=== PATIENT | female | born 1980 | race Caucasian/White ===

== ENCOUNTER → 2018-11-04 | Day surgery (SDC) | payer BC ==
[~2018-11-04] MED LIST: Bupivacaine 0.25% 10 ML SDV ONE; Dexamethasone 4 MG/ML 5 ML MDV ONE; Glycopyrrolate 0.2 MG/ML SDV ONE; Lactated Ringers 1,000 ML IV SCH; Lidocaine 2% 5 ML SDV ONE; Midazolam 1 MG/ML 2 ML SDV ONE; Neomycin/Polymyxin B Bladder Irrigation 1 ML Amp ONE; Neostigmine Methylsulfate 1 MG/ML 5 ML Syringe ONE; Ondansetron 4 MG/2 ML SDV ONE; Propofol 200 MG/20 ML SDV ONE; Scopolamine 1.5 MG Transdermal Patch TRDERM PRN; Sugammadex Sodium 200 MG/2 ML VIAL ONE; ceFAZolin 1 GM Vial ONE; fentaNYL 100 MCG/2 ML SDV ONE
--- NOTE | 2018-11-04 10:31 | PCM.PREANE ---
Preanesthetic Assessment - Anesthesia/Transfusion/Family Hx Anesthesia History: Prior Anesthesia Without Reaction Type of Anesthesia Reaction: Excessive Nausea/Vomiting Family History of Anesthesia Reaction: No Transfusion History: No Prior Transfusion(s) Intubation History: Unknown - Review of Systems General: No Symptoms Pulmonary: No Symptoms Cardiovascular: No Symptoms Gastrointestinal: No Symptoms Neurological: No Symptoms Other: Reports: None - Physical Assessment O2 Sat by Pulse Oximetry: 98 Respiratory Rate: 16 Vital Signs: Last Vital Signs Temp 36.7 C 11/04/18 09:59 Pulse 79 11/04/18 09:59 Resp 16 11/04/18 09:59 BP 124/69 11/04/18 09:59 Pulse Ox 98 11/04/18 09:59 Height: 1.55 m Weight: 62.596 kg ASA Class: 2 Mental Status: Alert & Oriented x3 Airway Class: Mallampati = 1 Dentition: Reports: Normal Dentition Thyro-Mental Finger Breadths: 3 Mouth Opening Finger Breadths: 3 ROM/Head Extension: Full Lungs: Clear to Auscultation, Normal Respiratory Effort Cardiovascular: Regular Rate, Regular Rhythm - Lab Values: Laboratory Last Values WBC 10.35 K/uL (4.0-11.0) 11/03/18 10:31 RBC 4.82 M/uL (4.30-5.90) 11/03/18 10:31 Hgb 15.2 g/dL (12.0-16.0) 11/03/18 10:31 Hct 44.0 % (36.0-46.0) 11/03/18 10:31 MCV 91.3 fL (80.0-98.0) 11/03/18 10:31 MCH 31.5 pg (27.0-32.0) 11/03/18 10:31 MCHC 34.5 g/dL (31.0-37.0) 11/03/18 10:31 RDW Std Deviation 44.4 fl (28.0-62.0) 11/03/18 10:31 RDW Coeff of Clarence 13 % (11.0-15.0) 11/03/18 10:31 Plt Count 190 K/uL (150-400) 11/03/18 10:31 MPV 12.50 fL (7.40-12.00) H 11/03/18 10:31 Nucleated RBC % 0.0 /100WBC 11/03/18 10:31 Nucleated RBCs # 0 K/uL 11/03/18 10:31 HCG, Qual NEGATIVE (NEG) 11/03/18 10:31 - Allergies Allergies/Adverse Reactions: Allergies Allergy/AdvReac Type Severity Reaction Status Date / Time aspirin Allergy Anaphylactic Verified 10/30/18 13:33 Shock egg Allergy Abdominal Verified 10/30/18 13:33 Pain Sulfa (Sulfonamide Allergy Hives Verified 10/30/18 13:33 Antibiotics) "Myacin" meds Allergy Hives Uncoded 10/22/16 11:38 All Narcotics except T3 Allergy Vomiting Uncoded 10/22/16 11:38 - Blood Blood Available: No - Anesthesia Plan Pre-Op Medication Ordered: None - Acknowledgements Anesthesia Type Planned: General Anesthesia Pt an Appropriate Candidate for the Planned Anesthesia: Yes Alternatives and Risks of Anesthesia Discussed w Pt/Guardian: Yes Pt/Guardian Understands and Agrees with Anesthesia Plan: Yes PreAnesthesia Questionnaire HEENT History: Reports: Other (See Below) Other HEENT History: Multiple jaw dislocations, wears glasses Cardiovascular History: Reports: None 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) Gastrointestinal History: Reports: PUD Genitourinary History: Reports: None 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: , Other (See Below) Other OB/BYN History: Cervical Cancer Musculoskeletal History: Reports: None Neurological History: Reports: Migraines Psychiatric History: Reports: Anxiety, Depression Endocrine/Metabolic History: Reports: None Hematologic History: Reports: None Immunologic History: Reports: None Oncologic (Cancer) History: Reports: Cervix Dermatologic History: Reports: None - Infectious Disease History Infectious Disease History: Reports: Chicken Pox - Past Surgical History Head Surgeries/Procedures: Reports: None HEENT Surgical History: Reports: Oral Surgery Other HEENT Surgeries/Procedures: wisdom teeth extractions Cardiovascular Surgical History: Reports: None Respiratory Surgical History: Reports: None GI Surgical History: Reports: Cholecystectomy Female Surgical History: Reports: Hysterectomy (vaginal) Endocrine Surgical History: Reports: None Neurological Surgical History: Reports: None Musculoskeletal Surgical History: Reports: None Oncologic Surgical History: Reports: None Dermatological Surgical History: Reports: None - SUBSTANCE USE Smoking Status *Q: Never Smoker Recreational Drug Use History: No - HOME MEDS Home Medications: Home Meds diphenhydrAMINE HCl [Benadryl Allergy] 25 mg PO BEDTIME 10/22/16 [History] Albuterol Sulfate [Albuterol Sulfate Hfa] 1 - 2 puff INH ASDIRECTED PRN [History] - CURRENT (IN HOUSE) MEDS Current Meds: Current Medications Lactated Ringer's (Ringers, Lactated) 1,000 mls @ 125 mls/hr IV ASDIRECTED NADJA Last Admin: 11/04/18 10:04 Dose: 125 mls/hr
--- NOTE | 2018-11-04 12:03 | PCM.OPNOTE ---
- General Post-Op/Procedure Note Date of Surgery/Procedure: 11/04/18 Operative Procedure(s): single incision midurethral sling placement Findings: urethral hypermobility Pre Op Diagnosis: stress incontinence with urethral hypermobility Post-Op Diagnosis: Same Anesthesia Technique: General ET Tube Primary Surgeon: Patricia Mario Anesthesia Provider: Mari Ambrose Radic Pathology: none Fluid Replacement, Intraop: 1,000 EBL in mLs: 10 Drain/Tube Comments:: Shah left for post-void residual Complications: None Known Condition: Good
--- NOTE | 2018-11-04 13:26 | PCM48HPAN ---
Post Anesthesia Note - EVALUATION WITHIN 48HRS OF ANESTHETIC Vital Signs in Normal Range: Yes Patient Participated in Evaluation: Yes Respiratory Function Stable: Yes Airway Patent: Yes Cardiovascular Function Stable: Yes Hydration Status Stable: Yes Pain Control Satisfactory: Yes Nausea and Vomiting Control Satisfactory: Yes Mental Status Recovered: Yes Resp Rate: 12 - COMMENTS/OBSERVATIONS Free Text/Narrative:: no anesthesia problems
--- NOTE | 2018-11-04 14:07 | OR ---
SURGEON: Patricia Mario M.D. DATE OF PROCEDURE: 11/04/2018 PREOPERATIVE DIAGNOSIS: Stress urinary incontinence with urethral hypermobility. POSTOPERATIVE DIAGNOSIS: Stress urinary incontinence with urethral hypermobility. PROCEDURE: Single incision mid urethral sling placement. ANESTHESIA: Local and general. ESTIMATED BLOOD LOSS: 10 mL. FINDINGS: Urethral hypermobility, good vaginal support. COMPLICATIONS: None known. DISPOSITION: Stable to recovery. FLUIDS: 1000 mL crystalloid. BRIEF HISTORY: This is a 38-year-old female. She has had a prior hysterectomy. She complains of stress incontinence. Cystometry confirmed urethral hypermobility with stress incontinence without any other significant findings and therefore she was offered a mid urethral sling. I did offer her referral to urogynecologist as well as expectant management. She has already been doing Kegel exercises and has maximally utilized her pelvic floor training and desires to proceed with the mid urethral sling. She was extensively counseled on 2 occasions prior to the surgery and given written information. The specific risks were discussed including bleeding; infection; injury to urethra, bladder, and ureters; risk of pain; risk of pain with intercourse; risk of erosion into the vagina or urethra; risk of failure. Understanding all these risks, she does desire to proceed. DESCRIPTION OF PROCEDURE: With the patient in dorsal lithotomy position under adequate general anesthesia, the perineum and vagina were prepped with Betadine, draped in the usual fashion for vaginal surgery. Shah catheter was placed. SCDs were in place and appropriate time-out was held. She received a gram of Ancef IV. A weighted speculum was placed posteriorly and the Shah bulb was palpated. The vaginal mucosa was grasped approximately 1 cm cephalad from the urethral meatus and a 1.5 cm incision was made after hydrodissection was performed using 1:1 to 2 solution of 1% lidocaine, 0.25% Marcaine, and saline. Metzenbaum scissors were used to undermine the vaginal mucosa toward the pubic ramus on the right and left and the obturator foramen was palpated. The Solyx sling was loaded and with the tip at a 45-degree angle, pointing just beneath the pubic ramus and the handle at a slight 30 degrees angle, directed from the midline towards the ipsilateral side, the tip was passed beneath the pubic ramus. The handle was then dropped and rotated approximately 45 degrees once it passed through the obturator foramen. As the tip was passed through the obturator foramen, I confirmed that it was placed securely and the tip was then released. The process was repeated on the opposite side. However, before releasing the handle, curved Lyles scissors were placed between the urethra and the sling to ensure that the sling was appropriately tensioned and located. Therefore, the tip was released and Neosporin solution was used to irrigate the incision and the skin was closed a running lock suture of 3-0 Polysorb. The Shah catheter was left in place for a voiding trial following the surgery. Final sponge, needle, and instrument counts were reported as correct. All the instruments had been removed from the vagina. The patient was transferred into recovery in good condition. MIKE JIM /[id number]
[2018-11-04 16:52] VITALS: BP 128/76
== END | disposition home or self-care (01) ==
LOC: MW.SDS 08:34
PROVIDERS: ATTEND Obstetrics & Gynecology
DX: N36.41 Hypermobility of urethra (principal); N39.3 Stress incontinence (female) (male); J45.990 Exercise induced bronchospasm; G43.909 Migraine, unspecified, not intractable, without status migrainosus; F32.9 Major depressive disorder, single episode, unspecified; F41.9 Anxiety disorder, unspecified; Z88.6 Allergy status to analgesic agent; Z91.012 Allergy to eggs; Z88.2 Allergy status to sulfonamides; Z88.5 Allergy status to narcotic agent; Z90.710 Acquired absence of both cervix and uterus
CPT/HCPCS: 36415; 57288; 84703; 85027; A9270; C1771; J0690; J1100; J2001; J2250; J2405; J2704; J3010; J3490; J7120

== ENCOUNTER 2020-06-20 11:52 | Emergency (ER) | payer BC ==
--- NOTE | 2020-06-20 12:26 | EDM.PDOC ---
ED HPI GENERAL MEDICAL PROBLEM - General Chief Complaint: Eye Problems Stated Complaint: EYES SWOLLEN Time Seen by Provider: 06/20/20 11:57 Source of Information: Reports: Patient History Limitations: Reports: No Limitations - History of Present Illness INITIAL COMMENTS - FREE TEXT/NARRATIVE: 39-year-old female w/PMH asthma, seasonal allergies, migraines presenting with bilateral eye swelling and headache. She was seen by her nurse practitioner on 06/17. Patient was diagnosed with intractable migraine and maxillary sinusitis. Had a head CT performed on 06/17/2020 which showed no acute intracranial findings but was concerning for bilateral ethmoid and maxillary sinusitis. She was started on Augmentin twice daily for 14 days and also given fluticasone spray. She received intramuscular ketorolac and methylprednisolone. Today she presents complaining of bilateral eyelid swelling, headache, sinus pressure. Posterior headache on the left side present for at least 9 days. States this is typical for her compared to her prior migraines. Denies any history of head trauma, anticoagulant use, history of intracranial aneurysm, fever, neck stiffness, facial droop, facial or extremity numbness or weakness, gait changes. Bilateral maxillary sinus pressure for at least 12 days. Bilateral eyelids have been swollen for close to a week. Denies any eye pain, visual disturbance, pain with eye movement, does not wear contacts, no prior ophthalmologic surgeries. Denies fever, chills, neck stiffness, chest pain, shortness of breath, rhinorrhea, hives, rash, recent injuries to the eye. No drainage from the eyes. No sore throat or difficulty swallowing, handling secretions well without issue. Past medical history: Reviewed, no additional pertinent history. Surgical history: Reviewed in system, no additional pertinent history. Social history: Reviewed in system, no additional pertinent history. Family history: Reviewed in system, no additional pertinent history. PHYSICAL EXAM Vital signs reviewed. Nursing notes reviewed. Constitutional: Awake, alert, non-distressed. Head: Normocephalic, atraumatic. Eyes: EOMI, conjunctiva normal, no discharge, no scleral icterus. No scleral injection or drainage from the eyes. Pupils 3 mm bilaterally. Mild bilateral eyelid edema. Visual acuity 20/20 OD, 20/30 OS, 20/20 OU. Ears, Nose, Throat: External ears and nose normal, moist oral mucosa. Normal voice. TMs clear bilaterally, bilateral nares clear. Mild bilateral maxillary sinus tenderness. Neck: Supple, full range of motion. No cervical lymphadenopathy. Cardiovascular: 2+ radial pulse, capillary refill less than 2 seconds. Pulmonary: normal work of breathing, no accessory muscle use. Abdomen/GI: Soft, nontender, nondistended, no guarding or rigidity, no masses. Musculoskeletal: No deformities. Integumentary: Appropriate color for ethnicity, warm, dry, no pallor or jaund ice, no rash. Neurologic: Alert, answering questions appropriately, normal speech, no facial droop, moving all extremities well. Psychiatric: Appropriate mood and affect, normal thought process. head Pain Score (Numeric/FACES): 8 - Related Data Allergies Allergy/AdvReac Type Severity Reaction Status Date / Time aspirin Allergy Anaphylactic Verified 06/20/20 12:20 Shock egg Allergy Abdominal Verified 06/20/20 12:20 Pain Sulfa (Sulfonamide Allergy Hives Verified 06/20/20 12:20 Antibiotics) "Myacin" meds Allergy Hives Uncoded 06/20/20 12:20 All Narcotics except T3 Allergy Vomiting Uncoded 06/20/20 12:20 Home Meds: Home Meds diphenhydrAMINE HCL [Benadryl Allergy] 25 mg PO BEDTIME 10/22/16 [History] Albuterol Sulfate [Albuterol Sulfate Hfa] 1 - 2 puff INH ASDIRECTED PRN 10/30/18 [History] Amoxicillin/Potassium Clav [Augmentin 875-125 Tablet] 1 tab PO BID 06/20/20 [History] Azelastine [Astelin Nasal Soln] 2 spray JOB BID 06/20/20 [History] Past Medical History HEENT History: Reports: Other (See Below) Other HEENT History: Multiple jaw dislocations, wears glasses Cardiovascular History: Reports: None Respiratory History: Reports: Asthma Gastrointestinal History: Reports: PUD Genitourinary History: Reports: None 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: , Other (See Below) 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 MACHINE 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 History: Cervical Cancer Musculoskeletal History: Reports: None Neurological History: Reports: Migraines Psychiatric History: Reports: Anxiety, Depression Endocrine/Metabolic History: Reports: None Hematologic History: Reports: None Immunologic History: Reports: None Oncologic (Cancer) History: Reports: Cervix Dermatologic History: Reports: None - Infectious Disease History Infectious Disease History: Reports: Chicken Pox - Past Surgical History Head Surgeries/Procedures: Reports: None HEENT Surgical History: Reports: Oral Surgery Other HEENT Surgeries/Procedures: wisdom teeth extractions Cardiovascular Surgical History: Reports: None Respiratory Surgical History: Reports: None GI Surgical History: Reports: Cholecystectomy Female Surgical History: Reports: Hysterectomy, Other (See Below) Other Female Surgeries/Procedures: Bladder Sling Endocrine Surgical History: Reports: None Neurological Surgical History: Reports: None Musculoskeletal Surgical History: Reports: None Oncologic Surgical History: Reports: None Dermatological Surgical History: Reports: None Social & Family History - Family History Family Medical History: Noncontributory Cardiac: Reports: CAD - Tobacco Use Smoking Status *Q: Never Smoker - Caffeine Use Caffeine Use: Reports: None - Recreational Drug Use Recreational Drug Use: Yes Drug Use in Last 12 Months: Yes Recreational Drug Type: Reports: Marijuana/Hashish Recreational Drug Use Frequency: Daily ED ROS GENERAL - Review of Systems Review Of Systems: See Below ED EXAM GENERAL W FULL EYE - Physical Exam Exam: See Below Course - Vital Signs Text/Narrative:: Patient [hemodynamically stable, afebrile], well-appearing, looks nontoxic. Differential diagnosis includes but is not limited to: Migraine, ORACLE DATABASE ANALYST tumor, SAH, SDH, EDH, intraparenchymal hemorrhage, bacterial conjunctivitis versus viral versus allergic, allergic reaction, acute sinusitis, seasonal allergies, etc. neurologically intact. Presentation of headache is consistent with known prior migraines. Had a negative head CT on 06/17. Given symptoms are identical and had not changed or worsened with no interval head trauma, do not think we need to repeat this today. I did offer medications to help treat her migraine which she declined. She does not want any ED treatment for her headache. She is neurologically intact and has no focal neurologic deficits. We discussed treatment with imip-ovt-ptoqxev Tylenol and Motrin and following up with her nurse practitioner in primary care clinic. I agree that she likely has acute maxillary sinusitis. She is already on Augmentin and Flonase spray. We discussed further ysyy-gmj-prjzfte treatments including oral Sudafed, nasal saline spray, etc. She is going to see an curing room worker in the next few weeks for further follow-up. Her globes look normal. She does have some mild bilateral eyelid edema. I did recommend huzt-sgg-gljdupa second-generation antihistamine, which she says she has not tolerated well in the past because it triggers her migraines. We did discuss ytgg-zbp-dklfhgd olopatadine for her ocular allergy symptoms. I do not think she has a viral or bacterial conjunctivitis at this point, there is no scleral injection and she is already on oral antibiotics. Her visual acuity is normal. Plan: Patient is stable to discharge home with outpatient primary care clinic follow-up. Strict emergency department return precautions were provided, patient indicated understanding. All questions were answered prior to de parture. Discharged in good condition. Last Recorded V/S: Last Vital Signs Temp 37.1 C 06/20/20 12:17 Pulse 90 06/20/20 12:17 Resp 16 06/20/20 12:17 BP 140/73 06/20/20 12:17 Pulse Ox 99 06/20/20 12:17 - Orders/Labs/Meds Orders: Active Orders 24 hr Category Date Time Status Visual Acuity [Vision Test] [RC] ASDIRECTED Care 06/20/20 12:00 Active Departure - Departure Time of Disposition: 12:57 Disposition: Home, Self-Care 01 Condition: Good Clinical Impression: Edema of eyelid of both eyes Migraine Qualifiers: Migraine type: unspecified Status migrainosus presence: with status migrainosus Intractability: intractable Qualified Code(s): G43.911 - Migraine, unspecified, intractable, with status migrainosus Acute maxillary sinusitis Qualifiers: Recurrence: non-recurrent Qualified Code(s): J01.00 - Acute maxillary sinusitis, unspecified - Discharge Information *PRESCRIPTION DRUG MONITORING PROGRAM REVIEWED*: Not Applicable *COPY OF PRESCRIPTION DRUG MONITORING REPORT IN PATIENT DOYLE: Not Applicable Instructions: Migraine Headache Referrals: Uzma Ambrosio NP [Primary Care Provider] - 1 Week (For reevaluation.) Forms: ED Department Discharge Additional Instructions: You were seen in the emergency department for headache, eyelid swelling, and sinus pressure. I agree that you have sinusitis, continue taking the nasal spray and antibiotics that your nurse practitioner prescribed. Additionally, you can try zdfu-weq-bneplef Sudafed or any mrle-lbm-hirziom sinus medications that contain a decongestant medication such as phenylephrine. He can also try nasal saline rinses such as simply saline. I think that you are likely having a migraine and we did offer some medications, which he did not want to receive. You can take syto-xlf-urqgyrp acetaminophen and ibuprofen as directed on the package. I recommend iuvk-diu-pqhidyx extra strength acetaminophen (1000 mg every 6 hours) and ibuprofen (400 mg every 6 hours) to help treat your pain. Regarding her swollen eyelids, I think this is likely due to your seasonal allergies. I do recommend sbus-vxd-almebvg Claritin or Zyrtec once daily in the morning but I understand that you do not tolerate this very well. You can try an tzzf-dvb-vqzdzid eye medication called olopatadine which is an ocular allergy medication which may help. I would like for you to follow-up with your nurse practitioner in her clinic in the next few days if you are not feeling better, I also agree with seeing an curing room worker as you already plan to do. If your symptoms worsen come back to the ER immediately. Thank you for choosing the [facility] emergency department in [place] for your medical needs today. It was a pleasure caring for you. The following information is given to patients seen in the emergency department who are being discharged. This information is to outline your options for follow-up care. We provide all patients seen in our emergency department with a follow-up referral. The need for follow-up, as well as the timing and circumstances, are variable depending upon the specifics of your emergency department visit. If you don't have a primary care physician on staff, we will provide you with a referral. We always advise you to contact your personal physician following an emergency department visit to inform them of the circumstance of the visit and for follow-up with them and/or the need for any referrals to a consulting specialist. The emergency department will also refer you to a specialist when appropriate. This referral assures that you have the opportunity for follow-up care with a specialist. All of these measure are taken in an effort to provide you with optimal care, which includes your follow-up. Under all circumstances we always encourage you to contact your private physician who remains a resource for coordinating your care. When calling for follow-up care, please make the office aware that this follow-up is from your recent emergency room visit. If for any reason you are refused follow-up, please contact the [facility] Emergency Department at and asked to speak to the emergency department charge nurse. If you do not have a primary care physician that is caring for you, you can contact these clinics below to set up an appointment to establish care: [facility] - Primary Care [address] [place] [id number] [facility] [address] [place] [id number] Sepsis Event Note (ED) - Evaluation Sepsis Screening Result: No Definite Risk - Focused Exam Vital Signs: Vital Signs Temp Pulse Resp BP Pulse Ox 06/20/20 12:17 37.1 C 90 16 140/73 99 - My Orders Last 24 Hours: My Active Orders 06/20/20 12:00 Visual Acuity [Vision Test] [RC] ASDIRECTED - Assessment/Plan Last 24 Hours: My Active Orders 06/20/20 12:00 Visual Acuity [Vision Test] [RC] ASDIRECTED
[2020-06-20 13:10] VITALS: BP 134/64; PULSE 81
== END 2020-06-20 13:10 | disposition home or self-care (01) ==
LOC: MW.ED 11:52
DX: H02.846 Edema of left eye, unspecified eyelid (principal); H02.843 Edema of right eye, unspecified eyelid; G43.911 Migraine, unspecified, intractable, with status migrainosus; J01.00 Acute maxillary sinusitis, unspecified; J45.909 Unspecified asthma, uncomplicated; Z88.6 Allergy status to analgesic agent; Z91.012 Allergy to eggs; Z88.2 Allergy status to sulfonamides; Z79.899 Other long term (current) drug therapy
CPT/HCPCS: 99283

== ENCOUNTER 2020-08-30 03:58 | Emergency (ER) | payer BC ==
--- NOTE | 2020-08-30 04:28 | EDM.PDOC ---
ED HPI GENERAL MEDICAL PROBLEM - General Chief Complaint: General Stated Complaint: PT. IS HAVING COMPLICATION AFTER SURGERY Time Seen by Provider: 08/30/20 03:59 Source of Information: Reports: Patient, Old Records History Limitations: Reports: No Limitations - History of Present Illness INITIAL COMMENTS - FREE TEXT/NARRATIVE: This is a very pleasant 40-year-old female with a past medical history of asthma, sinusitis, and migraines presenting with sore throat and cough. 3-day history of the symptoms. She was concerned that she may have strep throat so she came to the ER. Denies fever, chills, nausea, vomiting, neck stiffness, shortness of breath, chest pain, abdominal pain, rash, dysuria, urinary frequency. Denies rhinorrhea or nasal congestion. Handling food and fluids without any issues. Taking tetracaine lollipops left over from sinus surgery for pain. Past medical history: Reviewed, no additional pertinent history. Surgical history: Reviewed in system, no additional pertinent history. Social history: Reviewed in system, no additional pertinent history. Family history: Reviewed in system, no additional pertinent history. PHYSICAL EXAM Vital signs reviewed. Nursing notes reviewed. Constitutional: Awake, alert, non-distressed. Head: Normocephalic, atraumatic. Eyes: EOMI, conjunctiva normal, no discharge, no scleral icterus. Ears, Nose, Throat: External ears and nose normal, moist oral mucosa. Uvula midline, tonsils appear normal, no exudate or erythema. No palatine erythema or lesions. No cervical lymphadenopathy. Neck: Supple, full range of motion. Cardiovascular: 2+ radial pulse, capillary refill less than 2 seconds. Pulmonary: normal work of breathing, no accessory muscle use. CTA BL. Abdomen/GI: Soft, nontender, nondistended, no guarding or rigidity, no masses. Musculoskeletal: No deformities. Integumentary: Appropriate color for ethnicity, warm, dry, no pallor or jaundice, no rash. Neurologic: Alert, answering questions appropriately, normal speech, no facial droop, moving all extremities well. Psychiatric: Appropriate mood and affect, normal thought process. This patient was seen and evaluated during the 2019 SARS-CoV-2 novel coronavirus pandemic period. Community viral transmission is ongoing at time of this encounter and the emergency department is operating under pandemic response procedures. throat Pain Score (Numeric/FACES): 8 - Related Data Allergies Allergy/AdvReac Type Severity Reaction Status Date / Time aspirin Allergy Anaphylactic Verified 08/30/20 04:08 Shock egg Allergy Abdominal Verified 08/30/20 04:08 Pain Sulfa (Sulfonamide Allergy Hives Verified 08/30/20 04:08 Antibiotics) "Myacin" meds Allergy Hives Uncoded 08/30/20 04:08 All Narcotics except T3 Allergy Vomiting Uncoded 08/30/20 04:08 Home Meds: Home Meds diphenhydrAMINE HCL [Benadryl Allergy] 25 mg PO BEDTIME 10/22/16 [History] Past Medical History HEENT History: Reports: Sinusitis, Other (See Below) Other HEENT History: Multiple jaw dislocations, wears glasses Cardiovascular History: Reports: None Respiratory History: Reports: None, Asthma Gastrointestinal History: Reports: None, PUD Genitourinary History: Reports: None 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 MANAGER History: Reports: None, , Other (See Below) Other GLOBAL 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 MANAGER History: Cervical Cancer Musculoskeletal History: Reports: None Neurological History: Reports: Migraines Psychiatric History: Reports: Anxiety, Depression Endocrine/Metabolic History: Reports: None Hematologic History: Reports: None Immunologic History: Reports: None Oncologic (Cancer) History: Reports: None, Cervix Dermatologic History: Reports: None - Infectious Disease History Infectious Disease History: Reports: Chicken Pox - Past Surgical History Head Surgeries/Procedures: Reports: None HEENT Surgical History: Reports: Oral Surgery, Other (See Below) Other HEENT Surgeries/Procedures: wisdom teeth extractions; sinus surgery 08/2020 Cardiovascular Surgical History: Reports: None Respiratory Surgical History: Reports: None GI Surgical History: Reports: Cholecystectomy Female Surgical History: Reports: Hysterectomy, Other (See Below) Other Female Surgeries/Procedures: Bladder Sling Endocrine Surgical History: Reports: None Neurological Surgical History: Reports: None Musculoskeletal Surgical History: Reports: None Oncologic Surgical History: Reports: None Dermatological Surgical History: Reports: None Social & Family History - Family History Family Medical History: No Pertinent Family History Cardiac: Reports: CAD - Caffeine Use Caffeine Use: Reports: None - Recreational Drug Use Recreational Drug Use: Yes Drug Use in Last 12 Months: Yes Recreational Drug Type: Reports: Marijuana/Hashish ED ROS GENERAL - Review of Systems Review Of Systems: See Below ED EXAM, GENERAL - Physical Exam Exam: See Below Course - Vital Signs Text/Narrative:: 40-year-old female with 3 days of nonproductive cough and sore throat. Differential includes COVID-19, viral URI, viral pharyngitis, strep throat, influenza. Absence of fever, cervical lymphadenopathy, presence of cough, and normal- appearing oropharyngeal exam argues against strep throat. Patient has no fever, myalgias, or GI symptoms to suggest influenza. Her tonsils appear normal. I would favor a viral URI versus COVID-19. We did discuss nasopharyngeal PCR testing for COVID-19 but the patient declined due to recent nasal and sinus surgery on 08/18/2020. She is worried that this may be harmful given the recent surgical procedure. I explained that I cannot exclude COVID-19 given her symptoms. I did provide her with instructions about quarantining at home and symptomatic treatment including [id number] cough medications, sore throat treatment, acetaminophen, and ibuprofen. At this point she is breathing comfortably, looks well, and her vital signs are within normal limits. She is stable to discharge home with outpatient primary care follow-up. Plan: Patient is stable to discharge home with outpatient primary care clinic follow-up. Strict emergency department return precautions were provided, patient indicated understanding. All questions were answered prior to departure. Discharged in good condition. Last Recorded V/S: Last Vital Signs Temp 36.9 C 08/30/20 04:09 Pulse 99 08/30/20 04:09 Resp 16 08/30/20 04:09 BP 136/67 08/30/20 04:09 Pulse Ox 98 08/30/20 04:09 Departure - Departure Time of Disposition: 04:27 Disposition: DC/Tfer to Hospice - Home 50 Condition: Good Clinical Impression: Viral URI - Discharge Information *PRESCRIPTION DRUG MONITORING PROGRAM REVIEWED*: Not Applicable *COPY OF PRESCRIPTION DRUG MONITORING REPORT IN PATIENT DOYLE: Not Applicable Instructions: Upper Respiratory Infection, Adult Referrals: [facility] - [facility] [Provider Group] - 1 Week (For follow-up of symptoms) Forms: ED Department Discharge Additional Instructions: You were seen in the emergency department for cough and sore throat. Your symptoms appear consistent with a viral upper respiratory illness, I do not believe you have strep throat. We cannot exclude COVID-19 infection without a nasopharyngeal PCR test. Therefore it is entirely possible that you have COVID- 19. You may develop new symptoms such as a headache, sore throat, cough, sneezing, nasal congestion or drainage, chest congestion, nausea, vomiting, diarrhea, body aches, or chills. These are not unusual. Recommendations are that you should isolate at home for at least 7 days from the start of your symptoms. When your symptoms are improving for a period of 24 hours and you have no fever (without the use of fever reducing medications like acetaminophen or ibuprofen), you may discontinue isolation and go back to work/school. If you are still feeling unwell at the end of the 7-day period, you should continue to isolate until you have been feeling better for 24 hours. You can take any standard oqhe-[id number] medications for cold or flu type symptoms including fever reducing medications (acetaminophen or ibuprofen), cough medications (Robitussin, cough drops or lozenges), or medications like TheraFlu or DayQuil/NyQuil. Be sure you are drinking plenty of fluids. If you are still feeling sick beyond 10-14 days after the onset of your symptoms I would recommend contacting your primary medical doctor's office for further guidance. Warning signs to come back to the emergency department include shortness of breath, chest pain, lightheadedness, loss of consciousness, if you are unable to swallow or handle drinking fluids, or if you have any other new and concerning symptoms. Please return the emergency department immediately if your symptoms worsen or if you feel worse. Thank you for choosing the [facility] [place] in [place] for your medical needs today. It was a pleasure caring for you. The following information is given to patients seen in the emergency department who are being discharged. This information is to outline your options for follow-up care. We provide all patients seen in our emergency department with a follow-up referral. The need for follow-up, as well as the timing and circumstances, are variable depending upon the specifics of your emergency department visit. If you don't have a primary care physician on staff, we will provide you with a referral. We always advise you to contact your personal physician following an emergency department visit to inform them of the circumstance of the visit and for follow-up with them and/or the need for any referrals to a consulting specialist. The emergency department will also refer you to a specialist when appropriate. This referral assures that you have the opportunity for follow-up care with a specialist. All of these measure are taken in an effort to provide you with opti mal care, which includes your follow-up. Under all circumstances we always encourage you to contact your private physician who remains a resource for coordinating your care. When calling for follow-up care, please make the office aware that this follow-up is from your recent emergency room visit. If for any reason you are refused follow-up, please contact the [facility] Emergency Department at and asked to speak to the emergency department charge nurse. If you do not have a primary care physician that is caring for you, you can contact these clinics below to set up an appointment to establish care: [facility] - Primary Care [address] [place] [id number] [facility] [address] [place] [id number] Sepsis Event Note (ED) - Evaluation Sepsis Screening Result: No Definite Risk - Focused Exam Vital Signs: Vital Signs Temp Pulse Resp BP Pulse Ox 08/30/20 04:09 36.9 C 99 16 136/67 98
[2020-08-30 04:33] VITALS: BP 124/74; PULSE 88
== END 2020-08-30 04:37 | disposition home or self-care (01) ==
LOC: MW.ED 03:58
DX: J06.9 Acute upper respiratory infection, unspecified (principal); J45.909 Unspecified asthma, uncomplicated; Z91.012 Allergy to eggs; Z88.8 Allergy status to other drugs, medicaments and biological substances; Z88.2 Allergy status to sulfonamides; Z88.5 Allergy status to narcotic agent; Z90.49 Acquired absence of other specified parts of digestive tract; Z90.710 Acquired absence of both cervix and uterus
CPT/HCPCS: 99282; 99283

== ENCOUNTER 2020-12-25 11:01 | Emergency (ER) | payer BC ==
[2020-12-25] MEDS ORDERED: diphenhydrAMINE 50 MG/ML SDV IVPUSH ONE (11:23)
[2020-12-25] MEDS ORDERED: Lactated Ringers 1,000 ML IV ONE (11:23)
[2020-12-25] MEDS ORDERED: Metoclopramide 10 MG/2 ML SDV IVPUSH ONE (11:23)
[2020-12-25] MEDS ORDERED: Ketorolac 30 MG/ML SDV IVPUSH ONE (11:23)
--- NOTE | 2020-12-25 11:31 | EDM.PDOC ---
ED HPI GENERAL MEDICAL PROBLEM - General Chief Complaint: Headache Stated Complaint: MIGRAINE HEADACHE Time Seen by Provider: 12/25/20 11:09 - History of Present Illness INITIAL COMMENTS - FREE TEXT/NARRATIVE: Patient is a 40-year-old female with a long standing history of migraine headaches. Her typical migraines are a pressure-like left-sided syndrome that radiates to her jehovah's witness in her left eye associated with blurry vision with light and sound sensitivity. Patient has had a typical migraine syndrome for 4 days now this morning she started to have nonbloody nonbilious emesis. Patient took her sumatriptan this morning as well as some Tylenol without improvement. Patient had sinus surgery the beginning of August 2020 and since then has had about half as many migraines each month that she did previously. Patient p resents today due to 4 days of refractory symptoms. No fevers no neck pain or stiffness no cough no other symptoms. headache Pain Score (Numeric/FACES): 10 - Related Data Allergies Allergy/AdvReac Type Severity Reaction Status Date / Time aspirin Allergy Anaphylactic Verified 12/25/20 11:25 Shock egg Allergy Abdominal Verified 12/25/20 11:25 Pain Sulfa (Sulfonamide Allergy Hives Verified 12/25/20 11:25 Antibiotics) "Myacin" meds Allergy Hives Uncoded 12/25/20 11:25 All Narcotics except T3 Allergy Vomiting Uncoded 12/25/20 11:25 Home Meds: Home Meds diphenhydrAMINE HCL [Benadryl Allergy] 25 mg PO BEDTIME 10/22/16 [History] Albuterol Sulfate [Albuterol Sulfate HFA] 2 puff INH Q4HR PRN 12/25/20 [History] ZOLMitriptan [Zolmitriptan Odt] 2.5 mg PO BID PRN 12/25/20 [History] Past Medical History HEENT History: Reports: Sinusitis, Other (See Below) Other HEENT History: Multiple jaw dislocations, wears glasses Cardiovascular History: Reports: None Respiratory History: Reports: None, Asthma Gastrointestinal History: Reports: None, PUD Genitourinary History: Reports: None STOPPER GRINDER History: Reports: None, , Other (See Below) Other STOPPER GRINDER History: Cervical Cancer Musculoskeletal History: Reports: None Neurological History: Reports: Migraines Psychiatric History: Reports: Anxiety, Depression Endocrine/Metabolic History: Reports: None Hematologic History: Reports: None Immunologic History: Reports: None Oncologic (Cancer) History: Reports: None, Cervix Dermatologic History: Reports: None - Infectious Disease History Infectious Disease History: Reports: Chicken Pox - Past Surgical History Head Surgeries/Procedures: Reports: None HEENT Surgical History: Reports: Oral Surgery, Other (See Below) Other HEENT Surgeries/Procedures: wisdom teeth extractions; sinus surgery 08/2020 Cardiovascular Surgical History: Reports: None Respiratory Surgical History: Reports: None GI Surgical History: Reports: Cholecystectomy Female Surgical History: Reports: Hysterectomy, Other (See Below) Other Female Surgeries/Procedures: Bladder Sling Endocrine Surgical History: Reports: None Neurological Surgical History: Reports: None Musculoskeletal Surgical History: Reports: None Oncologic Surgical History: Reports: None Dermatological Surgical History: Reports: None Social & Family History - Family History Family Medical History: No Pertinent Family History Cardiac: Reports: CAD - Caffeine Use Caffeine Use: Reports: None ED ROS GENERAL - Review of Systems Review Of Systems: See Below Free Text/Narrative/Comment: General: No fever. Skin: No rash. Eyes: Per HPI ENT: No sore throat. Neck: No neck stiffness. Respiratory: No shortness of breath. Cardiac: No chest pain. Gastrointestinal: Per HPI Urinary: No dysuria. Musculoskeletal: No myalgias/arthralgias. Neurologic: Per HPI ED EXAM, GENERAL - Physical Exam Exam: See Below Free Text/Narrative:: General Appearance: No acute distress, appears comfortable Skin: No rash HEENT: Normocephalic/atraumatic, sclera anicteric, mucous membranes moist Neck: Normal range of motion Chest and Lungs: Bilateral breath sounds, clear to auscultation Cardiovascular: Regular rate and rhythm, no murmur Abdomen: Soft, non-tender Back: Normal Musculoskeletal: No edema or tenderness Neurologic: Cranial nerves III through XI intact bilaterally, extraocular movements intact, normal lipgit-[id number] bilaterally, visual rocha intact to confrontation bilaterally, sensation grossly intact, strength grossly intact in the bilateral upper and lower extremities Psychiatric: Appropriate, cooperative Course - Vital Signs Last Recorded V/S: Last Vital Signs Temp 96.2 F L 12/25/20 11:14 Pulse 81 12/25/20 11:14 Resp 17 12/25/20 11:14 BP 143/84 H 12/25/20 11:14 Pulse Ox 98 12/25/20 11:14 - Orders/Labs/Meds Orders: Active Orders 24 hr Category Date Time Status Lactated Ringers [Ringers, Lactated] 1,000 ml Med 12/25/20 11:23 Active IV .BOLUS Medication Orders Lactated Ringer's (Ringers, Lactated) 1,000 mls @ 999 mls/hr IV .BOLUS ONE Stop: 12/25/20 12:23 Last Admin: 12/25/20 11:39 Dose: 999 mls/hr Documented by: [email or web address] Bulls: Medications Generic Name Dose Route Start Last Admin Trade Name Freq PRN Reason Stop Dose Admin Lactated Ringer's 1,000 mls @ 999 mls/hr 12/25/20 11:23 12/25/20 11:39 Ringers, Lactated IV 12/25/20 12:23 999 mls/hr .BOLUS ONE Administration Discontinued Medications Generic Name Dose Route Start Last Admin Trade Name Freq PRN Reason Stop Dose Admin Diphenhydramine HCl 25 mg 12/25/20 11:23 12/25/20 11:40 Diphenhydramine 50 Mg/Ml Sdv IVPUSH 12/25/20 11:24 25 mg ONETIME ONE Administration Ketorolac Tromethamine 15 mg 12/25/20 11:23 12/25/20 11:43 Ketorolac 30 Mg/Ml Sdv IVPUSH 12/25/20 11:24 15 mg ONETIME ONE Administration Metoclopramide HCl 10 mg 12/25/20 11:23 12/25/20 11:44 Metoclopramide 10 Mg/2 Ml Sdv IVPUSH 12/25/20 11:24 10 mg ONETIME ONE Administration Departure - Departure Time of Disposition: 12:19 Disposition: Home, Self-Care 01 Condition: Good Clinical Impression: Migraine - Discharge Information *PRESCRIPTION DRUG MONITORING PROGRAM REVIEWED*: Not Applicable *COPY OF PRESCRIPTION DRUG MONITORING REPORT IN PATIENT DOYLE: Not Applicable Instructions: Migraine Headache, [id number] Referrals: Carlito Burns MD [Primary Care Provider] - Forms: ED Department Discharge Additional Instructions: The following information is given to patients seen in the emergency department who are being discharged to home. This information is to outline your options for follow-up care. We provide all patients seen in our emergency department with a follow-up referral. The need for follow-up, as well as the timing and circumstances, are variable depending upon the specifics of your emergency department visit. If you don't have a primary care physician on staff, we will provide you with a referral. We always advise you to contact your personal physician following an emergency department visit to inform them of the circumstance of the visit and for follow-up with them and/or the need for any referrals to a consulting specialist. The emergency department will also refer you to a specialist when appropriate. This referral assures that you have the opportunity for follow-up care with a specialist. All of these measure are taken in an effort to provide you with optimal care, which includes your follow-up. Under all circumstances we always encourage you to contact your private physician who remains a resource for coordinating your care. When calling for follow-up care, please make the office aware that this follow-up is from your recent emergency room visit. If for any reason you are refused follow-up, please contact the [facility] Emergency Department at and asked to speak to the emergency department charge nurse. Sepsis Event Note (ED) - Evaluation Sepsis Screening Result: No Definite Risk - Focused Exam Vital Signs: Vital Signs Temp Pulse Resp BP Pulse Ox 12/25/20 11:14 96.2 F L 81 17 143/84 H 98 - My Orders Last 24 Hours: My Active Orders 12/25/20 11:23 Lactated Ringers [Ringers, Lactated] 1,000 ml IV .BOLUS - Assessment/Plan Last 24 Hours: My Active Orders 12/25/20 11:23 Lactated Ringers [Ringers, Lactated] 1,000 ml IV .BOLUS Assessment:: 40-year-old female presenting with typical migraine syndrome. Given patient's extensive prior history and the similarity of this to other presentations no indication for imaging or further work-up at this point there is no sign of meningitis or encephalitis. Nothing to suggest subarachnoid hemorrhage or intracranial mass. The patient has an allergy to aspirin she has tolerated Toradol well in the past. We will start with IV fluid Reglan Benadryl and Toradol and reassess. 1220: Patient symptoms are improving she is down to an 8 out of 10. I offered her additional medication but she is comfortable going home at this time. Return precaution discussed and understood.
[2020-12-25 15:56] VITALS: BP 115/70; PULSE 73
== END 2020-12-25 12:34 | disposition home or self-care (01) ==
LOC: MW.ED 11:01
DX: G43.909 Migraine, unspecified, not intractable, without status migrainosus (principal); J45.909 Unspecified asthma, uncomplicated; Z88.6 Allergy status to analgesic agent; Z91.012 Allergy to eggs; Z88.2 Allergy status to sulfonamides; Z88.5 Allergy status to narcotic agent; Z88.1 Allergy status to other antibiotic agents
CPT/HCPCS: 96374; 96375; 99283; J1200; J1885; J2765; J7120

== ENCOUNTER 2023-06-07 10:50 | Emergency (ER) | payer SELFPAY | END 2023-06-07 11:43 | disposition left against medical advice (07) | LOC: MW.ED 10:50 | DX: Z53.21 Procedure and treatment not carried out due to patient leaving prior to being seen by health care provider (principal) ==

== ENCOUNTER 2024-03-02 09:32 | Emergency (ER) | payer BC ==
[2024-03-02 09:45] LABS: BASOPHILS ABSOLUTE AUTO 0.07 K/uL (0.00-0.20); BASOPHILS PERCENT AUTO 0.8 % (0.0-1.0); EOSINOPHILS PERCENT AUTO 2.2 % (0.0-6.0); HEMATOCRIT 43.7 % (37.0-47.0); HEMOGLOBIN 14.5 g/dL (12.0-16.0); IMMATURE GRAN ABSOLUTE AUTO 0.02 K/uL (0.00-0.05); IMMATURE GRAN PERCENT AUTO 0.2 % (0.0-0.4); LYMPHOCYTES ABSOLUTE AUTO 4.21 K/uL (1.00-4.80); LYMPHOCYTES PERCENT AUTO 45.6 % (24.0-44.0); MEAN CORPUSCULAR HEMOGLOBIN 30.4 pg (28.0-32.0); MEAN CORPUSCULAR HGB CONC 33.2 g/dL (32.0-36.0); MEAN CORPUSCULAR VOLUME 91.6 fL (83.0-99.0); MEAN PLATELET VOLUME 11.8 fL (9.4-12.3); MONOCYTES ABSOLUTE AUTO 0.54 K/uL (0.00-0.80); MONOCYTES PERCENT AUTO 5.9 % (0.0-8.0); NEUTROPHILS ABSOLUTE AUTO 4.19 K/uL (1.80-7.70); NEUTROPHILS PERCENT AUTO 45.3 % (41.0-71.0); PLATELET COUNT,PLT 188 K/uL (150-400); RED BLOOD CELL COUNT 4.77 M/uL (4.10-5.30); WHITE BLOOD CELL COUNT,WBC 9.23 K/uL (3.9-11.3)
[2024-03-02] MEDS: Metoclopramide 10 MG/2 ML SDV IVPUSH ONE (09:45)
[2024-03-02] MEDS: Sodium Chloride 0.9% 1,000 ML IV ONE (09:45)
[2024-03-02] MEDS: Famotidine 20 MG/2 ML SDV IVPUSH ONE (09:45)
[2024-03-02] MEDS: diphenhydrAMINE 50 MG/ML SDV IVPUSH ONE (09:45)
[2024-03-02] MEDS: Cetirizine 10 MG Tab PO ONE (09:45)
[2024-03-02] MEDS: Sodium Chloride 0.9% 2.5 ML Syringe FLUSH PRN (09:46)
[2024-03-02] MEDS: Sodium Chloride 0.9% 10 ML Syringe FLUSH PRN (09:46)
[2024-03-02 10:02] LABS: CALCIUM 8.6 mg/dL (8.5-10.1); CARBON DIOXIDE,CO2 24.9 mmol/L (21.0-32.0); CREATININE 0.9 mg/dL (0.6-1.0); EST CRCL DRUG DOSING (CG) 62.43 mL/min; POTASSIUM,K 3.5 mmol/L (3.5-5.1)
[2024-03-02] MEDS: Dexamethasone 4 MG/ML SDV IVPUSH ONE (10:18)
[2024-03-02 10:58] VITALS: BP 115/64; PULSE 66
== END 2024-03-02 11:36 | disposition home or self-care (01) ==
LOC: MW.ED 09:32
DX: T78.1XXA Other adverse food reactions, not elsewhere classified, initial encounter (principal); J45.909 Unspecified asthma, uncomplicated; Z88.6 Allergy status to analgesic agent; Z91.011 Allergy to milk products; Z91.012 Allergy to eggs; Z88.2 Allergy status to sulfonamides; Z79.899 Other long term (current) drug therapy; Z79.51 Long term (current) use of inhaled steroids; Z90.49 Acquired absence of other specified parts of digestive tract; Z90.710 Acquired absence of both cervix and uterus
CPT/HCPCS: 36415; 80048; 85025; 96374; 96375; 99284; A9270; J1100; J1200; J2765; J3490; J7030